=== PATIENT | female | born 1955 | race American Indian/Alaskan Native ===

== ENCOUNTER 2018-07-26 07:26 | Inpatient (IN) | payer OTHER ==
[2018-07-26] MEDS ORDERED: NORMODYNE IV ONE (07:45)
[2018-07-26 09:01] LABS: BUN/Creatinine Ratio 24; Basophils # (Auto) 0.1 K/mm3 (0.0-0.1); Basophils % (Auto) 0.7 % (0.0-1.8); Blood Urea Nitrogen 19 mg/dL (7-17); Calcium 10.2 mg/dL (8.4-10.2); Eosinophils % (Auto) 0.5 % (0.0-4.3); Hematocrit 39.8 % (30.3-42.9); Hemoglobin 12.7 gm/dl (10.1-14.3); Hemolysis Index 11; Lymphocytes # (Auto) 2.3 K/mm3 (1.2-5.4); Lymphocytes % (Auto) 32.5 % (13.4-35.0); Mean Corpuscular HGB Conc 32 % (30-34); Monocytes # (Auto) 0.4 K/mm3 (0.0-0.8); Monocytes % (Auto) 5.9 % (0.0-7.3); Platelet Count 254 K/mm3 (140-440); Red Blood Count 5.76 M/mm3 (3.65-5.03); Red Cell Distribution Width 16.8 % (13.2-15.2)
[2018-07-26 09:03] LABS: Alanine Aminotransferase 19 units/L (7-56); Albumin 4.4 g/dL (3.9-5)
[2018-07-26 09:07] LABS: Mean Corpuscular Hemoglobin 22 pg (28-32); Mean Corpuscular Volume 69 fl (79-97)
[2018-07-26 09:09] LABS: Bilirubin,Direct < 0.2 mg/dL (0-0.2)
[2018-07-26 09:16] LABS: INR 0.94 (0.87-1.13); Partial Thromboplastin Time 28.8 Sec. (24.2-36.6)
[2018-07-26] MEDS ORDERED: APRESOLINE IV ONE ×2 (09:27→11:48)
[2018-07-26] MEDS ORDERED: TYLENOL PO PRN (09:51)
[2018-07-26] MEDS ORDERED: SODIUM CHLORIDE FLUSH SYRINGE 10 ML IV PRN (09:51)
[2018-07-26] MEDS ORDERED: ZOFRAN IV PRN (09:51)
--- NOTE | 2018-07-26 09:55 | History and Physical Report ---
History of Present Illness Date of examination: 07/26/18 Chief complaint: Blood pressure is high History of present illness: 63-year-old -Serbian female with past medical history significant for hypertension, medication noncompliance was sent to the emergency department I have dentist. Patient went for dental checkup in the dentist check her blood pressure was high and he sent her here. Patient denies chest pain, headache, shortness of breath, palpitation. Patient said she was diagnosed with hypertension and didn't take medication over a year. At presentation blood pressure was 220/153 and is started on Cardene drip. REVIEW OF SYSTEMS: GENERAL: no weight change, no fatigue, no fever HEAD: no head ache EYES: no blurry vision, no acute visual loss EARS: no hearing loss, no discharge, no earache NOSE: no stuffiness, no sneezing, no discharge MOUTH, THROAT AND NECK: no bleeding gums, no sore throat, no swollen neck CARDIAC: no palpitations, no dyspnea on exertion, no orthopnea, no PND, no edema , no chest pain RESPIRATORY: no shortness of breath, no wheeze, no cough, no sputum, no hemoptysis, no asthma GI: no decreased appetite, no nausea, no vomiting, no dysphagia, no diarrhea, no constipation, no abdominal pain URINARY: no change in frequency, no urgency, no polyuria, no hematuria, no incontinence MUSCULOSKELETAL: no muscle weakness, no pain, no joint stiffness NEUROLOGIC: no loss of sensation/numbness, no tingling, no tremors, no weakness/ paralysis HEMATOLOGIC: no anemia, no easy bruising SKIN: no rashes ENDOCRINE: no heat/cold intolerance, no polyuria, no polydipsia, no thyroid problems, no diabetes PSYCHIATRIC: no anxiety, no depression, no suicidal ideations Past History Past Medical History: hypertension Past Surgical History: Social history: IV drug use. denies: smoking, alcohol abuse, prescription drug abuse Family history: no significant family history Medications and Allergies Allergies Allergy/AdvReac Type Severity Reaction Status Date / Time Penicillins Allergy Unknown Verified 07/26/18 09:56 Active Meds: Active Medications Acetaminophen (Tylenol) 650 mg PO Q4H PRN PRN Reason: Pain MILD(1-3)/Fever >100.5/JONES Heparin Sodium (Porcine) (Heparin) 5,000 unit SUB-Q Q8HR LISSA Nicardipine HCl 50 mg/ Sodium (Chloride) 250 mls @ 25 mls/hr IV TITR LISSA; Protocol Ondansetron HCl (Zofran) 4 mg IV Q8H PRN PRN Reason: Nausea And Vomiting Sodium Chloride (Sodium Chloride Flush Syringe 10 Ml) 10 ml IV BID LISSA Sodium Chloride (Sodium Chloride Flush Syringe 10 Ml) 10 ml IV PRN PRN PRN Reason: LINE FLUSH Exam - Physical Exam Narrative exam: Not in cardiopulmonary distress. The patient appeared well nourished and normally developed. Vital signs as documented. Head exam is unremarkable. No scleral icterus . Neck is without jugular venous distension, thyromegaly, or carotid bruits. Lungs are clear to auscultation. Cardiac exam reveals regular rate and Rhythm. First and second heart sounds normal. No murmurs, rubs or gallops. Abdominal exam reveals normal bowel sounds, no masses, no organomegaly and no aortic enlargement. Extremities are nonedematous and both femoral and pedal pulses are normal. 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 No focal weakness. - Constitutional Vitals: Temp Pulse Resp BP Pulse Ox 98 F 102 H 20 243/135 98 07/26/18 07:36 07/26/18 08:21 07/26/18 07:36 07/26/18 08:21 07/26/18 07:36 Results - Labs CBC & Chem 7: 07/26/18 08:19 07/26/18 08:19 Labs: Laboratory Last Values WBC 6.9 K/mm3 (4.5-11.0) 07/26/18 08:19 RBC 5.76 M/mm3 (3.65-5.03) H 07/26/18 08:19 Hgb 12.7 gm/dl (10.1-14.3) 07/26/18 08:19 Hct 39.8 % (30.3-42.9) 07/26/18 08:19 MCV 69 fl (79-97) L 07/26/18 08:19 MCH 22 pg (28-32) L 07/26/18 08:19 MCHC 32 % (30-34) 07/26/18 08:19 RDW 16.8 % (13.2-15.2) H 07/26/18 08:19 Plt Count 254 K/mm3 (140-440) 07/26/18 08:19 Lymph % (Auto) 32.5 % (13.4-35.0) 07/26/18 08:19 [place] % (Auto) 5.9 % (0.0-7.3) 07/26/18 08:19 Eos % (Auto) 0.5 % (0.0-4.3) 07/26/18 08:19 Baso % (Auto) 0.7 % (0.0-1.8) 07/26/18 08:19 Lymph # 2.3 K/mm3 (1.2-5.4) 07/26/18 08:19 [place] # 0.4 K/mm3 (0.0-0.8) 07/26/18 08:19 Eos # 0.0 K/mm3 (0.0-0.4) 07/26/18 08:19 Baso # 0.1 K/mm3 (0.0-0.1) 07/26/18 08:19 Seg Neutrophils % 60.4 % (40.0-70.0) 07/26/18 08:19 Seg Neutrophils # 4.2 K/mm3 (1.8-7.7) 07/26/18 08:19 PT 13.1 Sec. (12.2-14.9) 07/26/18 08:19 INR 0.94 (0.87-1.13) 07/26/18 08:19 APTT 28.8 Sec. (24.2-36.6) 07/26/18 08:19 Sodium 142 mmol/L (137-145) 07/26/18 08:19 Potassium 3.4 mmol/L (3.6-5.0) L 07/26/18 08:19 Chloride 100.8 mmol/L (98-107) 07/26/18 08:19 Carbon Dioxide 23 mmol/L (22-30) 07/26/18 08:19 Anion Gap 22 mmol/L 07/26/18 08:19 BUN 19 mg/dL (7-17) H 07/26/18 08:19 Creatinine 0.8 mg/dL (0.7-1.2) 07/26/18 08:19 Estimated GFR > 60 ml/min 07/26/18 08:19 BUN/Creatinine Ratio 24 % 07/26/18 08:19 Glucose 100 mg/dL (65-100) 07/26/18 08:19 Calcium 10.2 mg/dL (8.4-10.2) 07/26/18 08:19 Magnesium 2.00 mg/dL (1.7-2.3) 07/26/18 08:19 Total Bilirubin 0.60 mg/dL (0.1-1.2) 07/26/18 08:19 Direct Bilirubin < 0.2 mg/dL (0-0.2) 07/26/18 08:19 Indirect Bilirubin 0.4 mg/dL 07/26/18 08:19 AST 20 units/L (5-40) 07/26/18 08:19 ALT 19 units/L (7-56) 07/26/18 08:19 Alkaline Phosphatase 114 units/L (35-129) 07/26/18 08:19 Troponin T < 0.010 ng/mL (0.00-0.029) 07/26/18 08:19 NT-Pro-B Natriuret Pep 120.9 pg/mL (0-900) 07/26/18 08:19 Total Protein 7.8 g/dL (6.3-8.2) 07/26/18 08:19 Albumin 4.4 g/dL (3.9-5) 07/26/18 08:19 Albumin/Globulin Ratio 1.3 % 07/26/18 08:19 - Imaging and Cardiology EKG: image reviewed Assessment and Plan Assessment and plan: 63-year-old -Serbian female with past medical history significant for hypertension, medication non compliance presented to the emergency department from her dentist of his for hypertension. Hypertensive urgency - Blood pressure at presentation was 220/153 - Patient was treated with Cardene drip and blood pressure controlled - Plan is to admit to ICU, but currently the patient is off cardene drip and downgraded to telemetry - CXR normal DVT prophylaxis - on heparin Disposition - Admit to telemetry. Advance Directives: Yes VTE prophylaxis?: Chemical Plan of care discussed with patient/family: Yes
[2018-07-26] MEDS ORDERED: CARDENE 50 MG in NACL 0.9% 250ML 230 ML IV SCH (10:00)
--- NOTE | 2018-07-26 10:51 | XRay Report ---
FINAL REPORT EXAM: XR CHEST 1V AP HISTORY: Chest Pain TECHNIQUE: Frontal chest x-ray. PRIORS: None currently available. FINDINGS: Cardiac silhouette is within normal limits. Aortic calcifications. There is no effusion. There is no pneumothorax. There is no consolidation. There are no suspicious osseous lesions. IMPRESSION: No acute cardiopulmonary findings.
[2018-07-26] MEDS: SODIUM CHLORIDE FLUSH SYRINGE 10 ML IV SCH ×2 (11:39→21:22)
--- NOTE | 2018-07-26 11:39 | Emergency Department Report ---
ED General Adult HPI - General Chief complaint: High BP Stated complaint: HBP Time Seen by Provider: 07/26/18 08:17 Source: patient Mode of arrival: Ambulatory Limitations: No Limitations - History of Present Illness Initial comments: 63-year-old female went to the dentist this week and was told that her blood pressure was too elevated for procedure. She thereby decided to come to the emergency department the check a Millan. She states that she occasionally has headaches but she does not have a headache at this time. She is noncompliant with her blood pressure regimen for months to years. She denies any acute headache or severe headache recently. She denies any neurological change. She further denies any chest pain shortness of breath or change in urine output. -: year(s) Location: head Consistency: now resolved - Related Data Allergies Allergy/AdvReac Type Severity Reaction Status Date / Time Penicillins Allergy Unknown Verified 07/26/18 09:56 ED Review of Systems ROS: Stated complaint: HBP Other details as noted in HPI Constitutional: denies: chills, fever Eyes: denies: eye pain, eye discharge, vision change ENT: denies: ear pain, throat pain Respiratory: denies: cough, shortness of breath, wheezing Cardiovascular: denies: chest pain, palpitations Endocrine: no symptoms reported Gastrointestinal: denies: abdominal pain, nausea, diarrhea Genitourinary: denies: urgency, dysuria, discharge Musculoskeletal: denies: back pain, joint swelling, arthralgia Skin: denies: rash, lesions Neurological: as per HPI, headache. denies: weakness, paresthesias Psychiatric: denies: anxiety, depression Hematological/Lymphatic: denies: easy bleeding, easy bruising ED Past Medical Hx - Past Medical History Hx Hypertension: Yes - Surgical History Additional Surgical History: C SECTION - Social History Smoking Status: Never Smoker Substance Use Type: None ED Physical Exam - General Limitations: No Limitations General appearance: alert, in no apparent distress - Head Head exam: Present: atraumatic, normocephalic - Eye Eye exam: Present: normal appearance, PERRL, EOMI. Absent: scleral icterus - ENT ENT exam: Present: mucous membranes moist - Neck Neck exam: Present: normal inspection. Absent: tenderness, meningismus - Respiratory Respiratory exam: Present: normal lung sounds bilaterally. Absent: respiratory distress - Cardiovascular Cardiovascular Exam: Present: regular rate, normal rhythm. Absent: systolic murmur, diastolic murmur, rubs, gallop - GI/Abdominal GI/Abdominal exam: Present: soft, normal bowel sounds. Absent: distended, tenderness, guarding, rebound, rigid - Extremities Exam Extremities exam: Present: normal inspection - Back Exam Back exam: Present: normal inspection - Neurological Exam Neurological exam: Present: alert, oriented X3, CN II-XII intact. Absent: motor sensory deficit - Psychiatric Psychiatric exam: Present: normal affect, normal mood - Skin Skin exam: Present: warm, dry, intact, normal color. Absent: rash ED Course Vital Signs 07/26/18 07/26/18 07/26/18 07:36 08:21 08:24 Temperature 98 F Pulse Rate 116 H 102 H 100 H Respiratory 20 22 Rate Blood Pressure 221/152 243/135 O2 Sat by Pulse 98 Oximetry 07/26/18 07/26/18 07/26/18 08:30 09:08 09:15 Temperature Pulse Rate 85 73 77 Respiratory 20 12 17 Rate Blood Pressure 231/126 231/126 212/120 O2 Sat by Pulse Oximetry 07/26/18 09:30 Temperature Pulse Rate 77 Respiratory 15 Rate Blood Pressure 208/117 O2 Sat by Pulse Oximetry - Reevaluation(s) Reevaluation #1: I did not find an indication for acute imaging at this time. I will leave that up to the hospitalist. The patient was given labetalol and later hydralazine. She will be admitted for her accelerated hypertension and further evaluation per the hospital staff. 07/26/18 11:37 ED Medical Decision Making - Lab Data Result diagrams: 07/26/18 08:19 07/26/18 08:19 Laboratory Results - last 24 hr 07/26/18 07/26/18 07/26/18 08:19 08:19 08:19 WBC 6.9 RBC 5.76 H Hgb 12.7 Hct 39.8 MCV 69 L MCH 22 L MCHC 32 RDW 16.8 H Plt Count 254 Lymph % (Auto) 32.5 [place] % (Auto) 5.9 Eos % (Auto) 0.5 Baso % (Auto) 0.7 Lymph # 2.3 [place] # 0.4 Eos # 0.0 Baso # 0.1 Seg Neutrophils % 60.4 Seg Neutrophils # 4.2 PT 13.1 INR 0.94 APTT 28.8 Sodium 142 Potassium 3.4 L Chloride 100.8 Carbon Dioxide 23 Anion Gap 22 BUN 19 H Creatinine 0.8 Estimated GFR > 60 BUN/Creatinine Ratio 24 Glucose 100 Calcium 10.2 Magnesium Total Bilirubin Direct Bilirubin Indirect Bilirubin AST ALT Alkaline Phosphatase Troponin T < 0.010 NT-Pro-B Natriuret Pep Total Protein Albumin Albumin/Globulin Ratio 07/26/18 08:19 WBC RBC Hgb Hct MCV MCH MCHC RDW Plt Count Lymph % (Auto) [place] % (Auto) Eos % (Auto) Baso % (Auto) Lymph # [place] # Eos # Baso # Seg Neutrophils % Seg Neutrophils # PT INR APTT Sodium Potassium Chloride Carbon Dioxide Anion Gap BUN Creatinine Estimated GFR BUN/Creatinine Ratio Glucose Calcium Magnesium 2.00 Total Bilirubin 0.60 Direct Bilirubin < 0.2 Indirect Bilirubin 0.4 AST 20 ALT 19 Alkaline Phosphatase 114 Troponin T NT-Pro-B Natriuret Pep 120.9 Total Protein 7.8 Albumin 4.4 Albumin/Globulin Ratio 1.3 - EKG Data -: EKG Interpreted by [place] EKG shows normal: sinus rhythm, axis, intervals, QRS complexes, ST-T waves - EKG Data Interpretation: LVH, other (EKG is fairly classic for LVH with inferolateral associated changes consistent with LVH) - Radiology Data Radiology results: report reviewed Critical care attestation.: If time is entered above; I have spent that time in minutes in the direct care of this critically ill patient, excluding procedure time. ED Disposition Clinical Impression: Accelerated hypertension Disposition: OP ADMIT IP TO THIS HOSP Is pt being admited?: Yes Does the pt Need Aspirin: No Time of Disposition: 11:39
[2018-07-26] MEDS ORDERED: CATAPRES PO ONE (11:53)
--- NOTE | 2018-07-26 13:52 | Consultation ---
History of Present Illness Consult date: 07/26/18 Requesting physician: MAHAD JEFFREY Reason for consult: other (Hypertensive Urgency) History of present illness: PULMONARY/CCM CONSULT NOTE (Full dictation # [id number]) Please see dictated notes for full details Medications and Allergies Allergies Allergy/AdvReac Type Severity Reaction Status Date / Time Penicillins Allergy Unknown Verified 07/26/18 09:56 Active Meds: Active Medications Acetaminophen (Tylenol) 650 mg PO Q4H PRN PRN Reason: Pain MILD(1-3)/Fever >100.5/JONES Heparin Sodium (Porcine) (Heparin) 5,000 unit SUB-Q Q8HR LISSA Ondansetron HCl (Zofran) 4 mg IV Q8H PRN PRN Reason: Nausea And Vomiting Sodium Chloride (Sodium Chloride Flush Syringe 10 Ml) 10 ml IV BID LISSA Last Admin: 07/26/18 11:39 Dose: 10 ml Sodium Chloride (Sodium Chloride Flush Syringe 10 Ml) 10 ml IV PRN PRN PRN Reason: LINE FLUSH Physical Examination Vital signs: Vital Signs Temp Pulse Resp BP Pulse Ox 98 F 116 H 20 221/152 98 07/26/18 07:36 07/26/18 07:36 07/26/18 07:36 07/26/18 07:36 07/26/18 07:36 Results - Laboratory Findings CBC and BMP: 07/26/18 08:19 07/26/18 08:19 PT/INR, D-dimer PT 13.1 Sec. (12.2-14.9) 07/26/18 08:19 INR 0.94 (0.87-1.13) 07/26/18 08:19 Abnormal lab findings: Abnormal Labs 07/26/18 07/26/18 08:19 08:19 RBC 5.76 H MCV 69 L MCH 22 L RDW 16.8 H Potassium 3.4 L BUN 19 H
[2018-07-26] MEDS ORDERED: HEPARIN SUB-Q SCH (14:00)
[2018-07-26] MEDS: APRESOLINE IV SCH ×2 (16:09→20:39)
[2018-07-26] MEDS ORDERED: K-DUR PO ONE (17:19)
[2018-07-26] MEDS: NORVASC PO SCH (17:52)
[2018-07-26] MEDS: HCTZ PO SCH (17:52)
--- NOTE | 2018-07-26 21:11 | Consultation ---
PULMONARY CRITICAL CARE CONSULTATION CONSULTING PHYSICIAN: Gerhard Borjas MD REASON FOR CONSULTATION: Hypertensive urgency. CHIEF COMPLAINT AND HISTORY OF PRESENT ILLNESS: The patient is a 63-year-old -[place] female with past medical history significant for diagnosis of high blood pressure for which she states she has been trying to control it with diet, went to see her dentist; however, was told her blood pressure was too high, so she came into the Emergency Room to get checked up. In the ER, she was found to indeed be significantly hypertensive, systolics up to about 250 mmHg. She denied any neurologic symptoms, no headache, no dizziness. She denied any nausea or vomiting. Denied chest pains. Denies palpitations. She was started on a Cardene drip and we were asked to assist with management. When I stopped by to see her, she was doing a little bit better, she had just received another dose of hydralazine and a dose of clonidine with a pretty decent response. She denied still any dizziness, any chest pains, any nausea, any vomiting. She describes herself to me as a never smoker. This really is as much of the history of presentation as I have. PAST MEDICAL HISTORY: Hypertension. PAST SURGICAL HISTORY: She has had a in the past. MEDICATIONS: She was on at the time I stopped by to see her were reviewed and include the following: Heparin 5000 units subcutaneous q.8 hours, Zofran 4 mg IV q. 8 hours p.r.n. nausea and vomiting, Tylenol 650 mg p.o. q.4 hours, and she had received a couple of doses of hydralazine as well as a dose of labetalol 10 mg IV once. ALLERGIES: PENICILLIN, nature of this allergy is unknown. DIET: Thin, almost cachectic looking lady. She denies significant weight loss or gain preceding few weeks to months. FAMILY AND SOCIAL HISTORY: Lives in the community. Denies alcohol, tobacco, or illicit drug use or abuse. Family history, otherwise significant for high blood pressure. REVIEW OF SYSTEMS: No loss of consciousness. No new onset seizures. No new onset focal weakness. No gross hematochezia or melena. No gross hematuria, no hematemesis. Denies palpitations. Denies heat or cold intolerance. Complete 13-system review of systems obtained. Pertinent positives and/or negatives as in body of history above, otherwise noncontributory. PHYSICAL EXAMINATION: VITAL SIGNS: At presentation, she was afebrile, temperature 98 degrees Fahrenheit, pulse 116, respiratory rate 20, blood pressure 221/152, was as high as 243/135, oxygen sats 98%, inspired oxygen concentration was not recorded, at the time, I did see her, she was around 98% on room air. GENERAL: Elderly looking -[place]ian female, normocephalic, atraumatic, talking to me in full sentences without significant respiratory distress. HEAD, EYES, EARS, NOSE, AND THROAT: She is anicteric. No conjunctival erythema. Oropharynx is a Mallampati #2 oropharynx. No gross jugular venous distention, no thyromegaly. Grossly, no palpable lymph nodes in the supraclavicular or submandibular lymph node chains. LUNGS: Auscultation of both lung bhakta unremarkable. Lungs are clear bilaterally. HEART: Heart sounds 1 and 2 are heard, regular rate and rhythm at the time of my evaluation with a heavy precordial heave, but no murmurs or rubs. ABDOMEN: Soft, flat. Bowel sounds are positive, nontender, no palpable hepatosplenomegaly. EXTREMITIES: Without overt digital clubbing or cyanosis. No pedal edema. NEUROLOGIC: Pupils are equal, round, about 3-4 mm, reactive to light. Extraocular muscle movements are intact. She moves all 4 extremities spontaneously. Mood and affect are normal. The skin is of poor turgor; however, without rash or cellulitis. LABORATORY DATA: From my review, white cell count 6900, hemoglobin 12.7, hematocrit 39.8, and platelet count of 254. No band forms. INR of 0.94. Serum sodium 142, potassium 3.4, chloride 101, bicarbonate 23, BUN 19, creatinine 0.8, and glucose of 100. Liver function test within normal limits. Cardiac enzymes within normal limits. Chest x-ray has been reviewed, does evidence of hyperinflation with flattening both of the right hemidiaphragm and depression somewhat of the liver. Taking the hyperinflation into consideration, I do see she has some cardiomegaly. No gross pneumothorax, no gross bony fracture. ASSESSMENT: 1. Hypertensive urgency. 2. Uncontrolled hypertension. 3. Possible chronic obstructive lung disease. 4. Cardiomegaly. 5. Hypokalemia. PLAN: She has responded very well to clonidine 0.3 mg as well as 20 mg of IV hydralazine. I will schedule hydralazine q.4h. 10 mg IV q.4 hours, but with hold parameters over the next 24 hours while we try to treat her oral medication, I will put her on clonidine 0.1 mg p.o. b.i.d. withhold parameters. I will defer to the primary team in terms of possible Cardiology evaluation. She may benefit from a 2D echocardiogram. She is appropriately on DVT prophylaxis. I will put her on GI prophylaxis. Flu and pneumonia vaccination will be addressed per protocol. Cardene drip has been stopped. She will be downgraded to the medical floor. Thank you very much for the consult. She is doing better. We will downgrade her to the medical floor and see her as needed during this hospitalization. JOB# [id number] KIMBERLY/KELLEY
[2018-07-26] MEDS: CATAPRES PO SCH (21:22)
[2018-07-26] MEDS ORDERED: LOVENOX SUB-Q SCH (22:00)
[2018-07-27] MEDS: APRESOLINE IV SCH ×4 (00:34→13:48)
[2018-07-27 08:02] LABS: Basophils % (Auto) 0.5 % (0.0-1.8); Eosinophils % (Auto) 0.2 % (0.0-4.3); Hematocrit 33.6 % (30.3-42.9); Lymphocytes # (Auto) 1.5 K/mm3 (1.2-5.4); Lymphocytes % (Auto) 22.2 % (13.4-35.0); Mean Corpuscular HGB Conc 33 % (30-34); Monocytes # (Auto) 0.4 K/mm3 (0.0-0.8); Monocytes % (Auto) 6.6 % (0.0-7.3); Platelet Count 245 K/mm3 (140-440); Red Blood Count 4.95 M/mm3 (3.65-5.03); Red Cell Distribution Width 16.6 % (13.2-15.2)
[2018-07-27 08:28] LABS: Mean Corpuscular Hemoglobin 22 pg (28-32); Mean Corpuscular Volume 68 fl (79-97)
[2018-07-27] MEDS: CATAPRES PO SCH (11:29)
[2018-07-27] MEDS: HCTZ PO SCH (11:30)
[2018-07-27] MEDS: NORVASC PO SCH (11:30)
[2018-07-27] MEDS: SODIUM CHLORIDE FLUSH SYRINGE 10 ML IV SCH (11:30)
[2018-07-27] MEDS ORDERED: K-DUR PO ONE ×2 (11:54→15:00)
--- NOTE | 2018-07-27 11:57 | Discharge Summary ---
Providers - Providers Date of Admission: 07/26/18 09:51 Attending physician: MAHAD JEFFREY MD 07/26/18 09:51 Consult to Physician [CONS] Routine Comment: MELVIN Johnson/Sebas NOTIFIED [id number] Consulting Provider: RAYO STEPHENS Physician Instructions: Reason For Exam: hypertensive urgency for ICU admission 07/27/18 04:55 Consult to Case Management [CONS] Routine Services Needed at Discharge: Other Notified:: No Additional Physician Instructions: Medication assistance Primary care physician: ARBORER Hospitalization Reason for admission: hypertensive urgency Condition: Stable Disposition: DC-01 TO HOME OR SELFCARE Time spent for discharge: 34 minutes - Discharge Diagnoses (1) Hypertensive urgency, malignant Status: Acute (2) Nonadherence to medication Status: Chronic Core Measure Documentation - Palliative Care Palliative Care/ Comfort Measures: Not Applicable - Core Measures Any of the following diagnoses?: none Exam - Physical Exam Narrative exam: Not in cardiopulmonary distress. The patient appeared well nourished and normally developed. Vital signs as documented. Head exam is unremarkable. No scleral icterus . Neck is without jugular venous distension, thyromegaly, or carotid bruits. Lungs are clear to auscultation. Cardiac exam reveals regular rate and Rhythm. First and second heart sounds normal. No murmurs, rubs or gallops. Abdominal exam reveals normal bowel sounds, no masses, no organomegaly and no aortic enlargement. Extremities are nonedematous and both femoral and pedal pulses are normal. 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 No focal weakness. - Constitutional Vitals: Temp Pulse Resp BP Pulse Ox 98.6 F 88 20 139/84 97 07/27/18 04:57 07/27/18 08:52 07/27/18 10:57 07/27/18 11:30 07/27/18 07:55 Plan Activity: no restrictions Diet: low salt Additional Instructions: follow up at [facility] in 1-2 weeks Follow up with: PRIMARY MD JERAMIE [Primary Care Provider] - 7 Days Prescriptions: amLODIPine [Norvasc] 10 mg PO QDAY #30 tablet cloNIDine [Catapres] 0.1 mg PO BID #60 tablet hydroCHLOROthiazide [HCTZ] 25 mg PO QDAY #30 tablet
[2018-07-27 13:19] VITALS: BP 151/90
== END 2018-07-27 15:40 | disposition home or self-care (01) | DRG 305 ==
LOC: ED 07:26 → CC1 09:51 → 4A 16:36
PROVIDERS: ADMIT Internal Medicine; ATTEND Internal Medicine
DX: I16.0 Hypertensive urgency (principal); I11.9 Hypertensive heart disease without heart failure; E87.6 Hypokalemia; Z91.14 Patient's other noncompliance with medication regimen; Z88.0 Allergy status to penicillin
CPT/HCPCS: 36415; 71045; 80048; 80074; 83735; 83880; 84484; 85025; 85610; 85730; 93005; 93010; J0360; J1644; J1650; J7050

== ENCOUNTER 2018-09-02 00:01 | Emergency (ER) | payer SELFPAY ==
[2018-09-02] MEDS ORDERED: ASPIRIN PO ONE (00:21)
[2018-09-02 01:04] LABS: Basophils % (Auto) 0.4 % (0.0-1.8); Eosinophils % (Auto) 0.1 % (0.0-4.3); Hematocrit 36.8 % (30.3-42.9); Hemoglobin 12.2 gm/dl (10.1-14.3); Lymphocytes # (Auto) 1.5 K/mm3 (1.2-5.4); Lymphocytes % (Auto) 18.4 % (13.4-35.0); Mean Corpuscular HGB Conc 33 % (30-34); Monocytes # (Auto) 0.4 K/mm3 (0.0-0.8); Monocytes % (Auto) 5.5 % (0.0-7.3); Platelet Count 255 K/mm3 (140-440); Red Blood Count 5.36 M/mm3 (3.65-5.03); Red Cell Distribution Width 16.9 % (13.2-15.2)
[2018-09-02 01:06] LABS: Mean Corpuscular Hemoglobin 23 pg (28-32); Mean Corpuscular Volume 69 fl (79-97)
[2018-09-02 01:27] LABS: BUN/Creatinine Ratio 30; Blood Urea Nitrogen 27 mg/dL (7-17); Calcium 10.6 mg/dL (8.4-10.2); Hemolysis Index 2
[2018-09-02 01:41] LABS: Bilirubin,Urine NEG (Negative); Blood,Urine MOD (Negative); Color,Urine Yellow (Yellow); Mucus,Urine FEW /HPF; Urobilinogen,Urine < 2.0 mg/dL (<2.0)
[2018-09-02 01:48] LABS: Amphetamine Screen,Urine PRESUMPTIVE NEGATIVE; Benzodiazepines Screen,Urine PRESUMPTIVE NEGATIVE; Cannabinoid Screen,Urine PRESUMPTIVE NEGATIVE; Cocaine Screen,Urine PRESUMPTIVE NEGATIVE; Methadone Screen,Urine PRESUMPTIVE NEGATIVE; Opiate Screen,Urine PRESUMPTIVE NEGATIVE
[2018-09-02] MEDS ORDERED: CATAPRES PO ONE ×2 (03:45→07:22)
--- NOTE | 2018-09-02 06:57 | Emergency Department Report ---
ED General Adult HPI - General Chief complaint: High BP Stated complaint: ELEVATED BP Time Seen by Provider: 09/02/18 06:25 Source: patient, old records reviewed Mode of arrival: Ambulatory Limitations: No Limitations - History of Present Illness Initial comments: 63-year-old female with a past medical history hypertension presents to the hospital with elevated blood pressure. Patient complains of some mild numbness and discomfort to bilateral soles of feet. Apparently she walks 30 miles last night. BP was elevated home. She's been noncompliant with her blood pressure medication. Daughter complains of she has been sleeping and walking a lot and having erratic behavior including inverting out things and screaming. Basic visit ED with elevated blood pressures as headache, chest pain, shortness breath , leg edema. She is alert and aware she is at the hospital ([facility]), the date and self. Previous medical records reviewed. Patient was admitted here and UNCONTROLLED hypertension treated with Cardizem drip and discharged on multiple blood pressure medications Severity scale (0 -10): 0 - Related Data Previous Rx's Medication Instructions Recorded Last Taken Type amLODIPine [Norvasc] 10 mg PO QDAY #30 tablet 09/02/18 Unknown Rx cloNIDine [Catapres] 0.1 mg PO BID #60 tablet 09/02/18 Unknown Rx hydroCHLOROthiazide [HCTZ] 25 mg PO QDAY #30 tablet 09/02/18 Unknown Rx Allergies Allergy/AdvReac Type Severity Reaction Status Date / Time Penicillins Allergy Unknown Verified 07/26/18 09:56 ED Review of Systems ROS: Stated complaint: ELEVATED BP Other details as noted in HPI Comment: All other systems reviewed and negative ED Past Medical Hx - Past Medical History Previous Medical History?: Yes Hx Hypertension: Yes - Surgical History Past Surgical History?: Yes Additional Surgical History: C SECTION - Social History Smoking Status: Never Smoker Substance Use Type: None - Medications Home Medications: Home Medications Medication Instructions Recorded Confirmed Last Taken Type amLODIPine [Norvasc] 10 mg PO QDAY #30 tablet 09/02/18 Unknown Rx cloNIDine [Catapres] 0.1 mg PO BID #60 tablet 09/02/18 Unknown Rx hydroCHLOROthiazide [HCTZ] 25 mg PO QDAY #30 tablet 09/02/18 Unknown Rx ED Physical Exam - General Limitations: No Limitations - Other Other exam information: General: No limitations, patient is alert in no acute distress Head exam: Atraumatic, normocephalic Eyes exam: Normal appearance, pupils equal reactive to light, extraocular movements intact ENT: Moist mucous membrane Neck exam: Normal inspection, full range of motion, no meningismus nontender Respiratory exam: Clear to auscultation bilateral, no wheezes, rales, crackles Cardiovascular: Normal rate and rhythm, normal heart sounds Abdomen: Soft, nondistended, and nontender, with normal bowel sounds, no rebound, or guarding Extremity: Full range of motion normal inspection no deformity, no calf tenderness or edema Back: Normal Inspection, full range of motion, no tenderness Neurologic: Alert, oriented x3, cranial nerves intact, no motor or sensory deficit, gait steady Psychiatric: normal affect, normal mood Skin: Warm, dry, intact ED Course Vital Signs 09/02/18 09/02/18 09/02/18 00:13 03:11 03:15 Temperature 99.2 F 98.4 F Pulse Rate 121 H 100 H Respiratory 18 16 Rate Blood Pressure 217/115 206/112 214/107 Blood Pressure 206/110 [Left] O2 Sat by Pulse 100 99 Oximetry 09/02/18 09/02/18 09/02/18 03:30 03:45 03:50 Temperature Pulse Rate 102 H Respiratory Rate Blood Pressure 204/104 171/96 171/96 Blood Pressure [Left] O2 Sat by Pulse 100 98 Oximetry 09/02/18 09/02/18 09/02/18 04:06 04:19 04:30 Temperature Pulse Rate Respiratory 16 Rate Blood Pressure 209/122 160/98 Blood Pressure [Left] O2 Sat by Pulse 98 98 98 Oximetry 09/02/18 09/02/18 09/02/18 05:00 06:22 06:56 Temperature 98.4 F Pulse Rate 82 104 H Respiratory 16 16 Rate Blood Pressure 165/97 Blood Pressure 166/94 212/124 [Left] O2 Sat by Pulse 98 98 Oximetry 09/02/18 09/02/18 09/02/18 07:24 07:54 09:06 Temperature 97.8 F Pulse Rate 85 77 75 Respiratory 20 Rate Blood Pressure 169/100 Blood Pressure 186/104 145/84 [Left] O2 Sat by Pulse 100 Oximetry ED Medical Decision Making - Lab Data Result diagrams: 09/02/18 00:33 09/02/18 00:33 Lab Results 09/02/18 09/02/18 09/02/18 Range/Units 00:21 00:33 00:33 WBC 8.0 (4.5-11.0) K/mm3 RBC 5.36 H (3.65-5.03) M/mm3 Hgb 12.2 (10.1-14.3) gm/dl Hct 36.8 (30.3-42.9) % MCV 69 L (79-97) fl MCH 23 L (28-32) pg MCHC 33 (30-34) % RDW 16.9 H (13.2-15.2) % Plt Count 255 (140-440) K/mm3 Lymph % (Auto) 18.4 (13.4-35.0) % [place] % (Auto) 5.5 (0.0-7.3) % Eos % (Auto) 0.1 (0.0-4.3) % Baso % (Auto) 0.4 (0.0-1.8) % Lymph # 1.5 (1.2-5.4) K/mm3 [place] # 0.4 (0.0-0.8) K/mm3 Eos # 0.0 (0.0-0.4) K/mm3 Baso # 0.0 (0.0-0.1) K/mm3 Seg Neutrophils % 75.6 H (40.0-70.0) % Seg Neutrophils # 6.0 (1.8-7.7) K/mm3 Sodium 142 (137-145) mmol/L Potassium 3.4 L (3.6-5.0) mmol/L Chloride 102.8 (98-107) mmol/L Carbon Dioxide 24 (22-30) mmol/L Anion Gap 19 mmol/L BUN 27 H (7-17) mg/dL Creatinine 0.9 (0.7-1.2) mg/dL Estimated GFR > 60 ml/min BUN/Creatinine Ratio 30 % Glucose 160 H (65-100) mg/dL POC Glucose 164 H (70-105) Calcium 10.6 H (8.4-10.2) mg/dL Troponin T < 0.010 (0.00-0.029) ng/mL Urine Color (Yellow) Urine Turbidity (Clear) Urine pH (5.0-7.0) Ur Specific [place] (1.003-1.030) Urine Protein (Negative) mg/dL Urine Glucose (UA) (Negative) mg/dL Urine Ketones (Negative) mg/dL Urine Blood (Negative) Urine Nitrite (Negative) Urine Bilirubin (Negative) Urine Urobilinogen (<2.0) mg/dL Ur Leukocyte Esterase (Negative) Urine WBC (Auto) (0.0-6.0) /HPF Urine RBC (Auto) (0.0-6.0) /HPF Urine Mucus /HPF Salicylates (2.8-20.0) mg/dL Urine Opiates Screen Urine Methadone Screen Acetaminophen (10.0-30.0) ug/mL Ur Barbiturates Screen Ur Phencyclidine Scrn Ur Amphetamines Screen U Benzodiazepines Scrn Urine Cocaine Screen U Marijuana (THC) Screen Drugs of Abuse Note Plasma/Serum Alcohol (0-0.07) % 09/02/18 09/02/18 09/02/18 Range/Units 00:33 00:33 00:33 WBC (4.5-11.0) K/mm3 RBC (3.65-5.03) M/mm3 Hgb (10.1-14.3) gm/dl Hct (30.3-42.9) % MCV (79-97) fl MCH (28-32) pg MCHC (30-34) % RDW (13.2-15.2) % Plt Count (140-440) K/mm3 Lymph % (Auto) (13.4-35.0) % [place] % (Auto) (0.0-7.3) % Eos % (Auto) (0.0-4.3) % Baso % (Auto) (0.0-1.8) % Lymph # (1.2-5.4) K/mm3 [place] # (0.0-0.8) K/mm3 Eos # (0.0-0.4) K/mm3 Baso # (0.0-0.1) K/mm3 Seg Neutrophils % (40.0-70.0) % Seg Neutrophils # (1.8-7.7) K/mm3 Sodium (137-145) mmol/L Potassium (3.6-5.0) mmol/L Chloride (98-107) mmol/L Carbon Dioxide (22-30) mmol/L Anion Gap mmol/L BUN (7-17) mg/dL Creatinine (0.7-1.2) mg/dL Estimated GFR ml/min BUN/Creatinine Ratio % Glucose (65-100) mg/dL POC Glucose (70-105) Calcium (8.4-10.2) mg/dL Troponin T (0.00-0.029) ng/mL Urine Color (Yellow) Urine Turbidity (Clear) Urine pH (5.0-7.0) Ur Specific [place] (1.003-1.030) Urine Protein (Negative) mg/dL Urine Glucose (UA) (Negative) mg/dL Urine Ketones (Negative) mg/dL Urine Blood (Negative) Urine Nitrite (Negative) Urine Bilirubin (Negative) Urine Urobilinogen (<2.0) mg/dL Ur Leukocyte Esterase (Negative) Urine WBC (Auto) (0.0-6.0) /HPF Urine RBC (Auto) (0.0-6.0) /HPF Urine Mucus /HPF Salicylates < 0.3 L (2.8-20.0) mg/dL Urine Opiates Screen Urine Methadone Screen Acetaminophen < 5.0 L (10.0-30.0) ug/mL Ur Barbiturates Screen Ur Phencyclidine Scrn Ur Amphetamines Screen U Benzodiazepines Scrn Urine Cocaine Screen U Marijuana (THC) Screen Drugs of Abuse Note Plasma/Serum Alcohol < 0.01 (0-0.07) % 09/02/18 09/02/18 Range/Units 01:07 01:07 WBC (4.5-11.0) K/mm3 RBC (3.65-5.03) M/mm3 Hgb (10.1-14.3) gm/dl Hct (30.3-42.9) % MCV (79-97) fl MCH (28-32) pg MCHC (30-34) % RDW (13.2-15.2) % Plt Count (140-440) K/mm3 Lymph % (Auto) (13.4-35.0) % [place] % (Auto) (0.0-7.3) % Eos % (Auto) (0.0-4.3) % Baso % (Auto) (0.0-1.8) % Lymph # (1.2-5.4) K/mm3 [place] # (0.0-0.8) K/mm3 Eos # (0.0-0.4) K/mm3 Baso # (0.0-0.1) K/mm3 Seg Neutrophils % (40.0-70.0) % Seg Neutrophils # (1.8-7.7) K/mm3 Sodium (137-145) mmol/L Potassium (3.6-5.0) mmol/L Chloride (98-107) mmol/L Carbon Dioxide (22-30) mmol/L Anion Gap mmol/L BUN (7-17) mg/dL Creatinine (0.7-1.2) mg/dL Estimated GFR ml/min BUN/Creatinine Ratio % Glucose (65-100) mg/dL POC Glucose (70-105) Calcium (8.4-10.2) mg/dL Troponin T (0.00-0.029) ng/mL Urine Color Yellow (Yellow) Urine Turbidity Clear (Clear) Urine pH 5.0 (5.0-7.0) Ur Specific [place] 1.013 (1.003-1.030) Urine Protein 100 mg/dl (Negative) mg/dL Urine Glucose (UA) 50 (Negative) mg/dL Urine Ketones Tr (Negative) mg/dL Urine Blood Mod (Negative) Urine Nitrite Neg (Negative) Urine Bilirubin Neg (Negative) Urine Urobilinogen < 2.0 (<2.0) mg/dL Ur Leukocyte Esterase Tr (Negative) Urine WBC (Auto) 1.0 (0.0-6.0) /HPF Urine RBC (Auto) 1.0 (0.0-6.0) /HPF Urine Mucus Few /HPF Salicylates (2.8-20.0) mg/dL Urine Opiates Screen Presumptive negative Urine Methadone Screen Presumptive negative Acetaminophen (10.0-30.0) ug/mL Ur Barbiturates Screen Presumptive negative Ur Phencyclidine Scrn Presumptive negative Ur Amphetamines Screen Presumptive negative U Benzodiazepines Scrn Presumptive negative Urine Cocaine Screen Presumptive negative U Marijuana (THC) Screen Presumptive negative Drugs of Abuse Note Disclamer Plasma/Serum Alcohol (0-0.07) % - EKG Data -: EKG Interpreted by Sd EKG shows normal: sinus rhythm, axis (qrs 63), QRS complexes (qrsd 84), ST-T waves (no stemi/t inv) Rate: normal (68) - EKG Data When compared to previous EKG there are: no significant change - Radiology Data Radiology results: report reviewed FINAL REPORT EXAM: CT HEAD/BRAIN WO CON HISTORY: pychosis, erradic behavior TECHNIQUE: CT imaging is acquired through the brain without contrast. Transaxial reformations are provided. PRIORS: None. FINDINGS: Ventricles and CSF spaces are within normal limits. Scattered deep and subcortical white matter hypodense foci are confluent in some areas (particularly in the superior posterior frontal lobes on axial series 2, images 38-44) and are compatible with microvascular angiopathy. No acute intracranial hemorrhage or mass effect. No skull fracture. No significant abnormality within the imaged paranasal sinuses or mastoid air cells. IMPRESSION: No acute intracranial hemorrhage or mass effect. Superior posterior frontal white matter hypodensity is most likely sequela of microvascular angiopathy. Infection and other vascular abnormalities could appear similar. Consider follow-up MRI. - Medical Decision Making Differential: Dementia patient presents to the hospital with asymptomatic hypertension likely secondary to medication noncompliance. Also suspect the patient has dementia given recent psychiatric history and current presentation. CT head without acute findings no laboratory by that's indicate acute encephalopathy. Mental health evaluation obtained and agrees that patient does not meet 1013 criteria. Outpatient follow-up for also be provided. Patient was admitted here July for uncontrolled hypertension and medication noncompliance. Improvement in BP at the clonidine in the ED. Recently discharge medications will be represcribed. Patient received by mouth potassium for mild hypokalemia. Referred to mental health body painter note. He discussed case with patient's daughter as part assessment. - Differential Diagnosis hypertensive emergency, medication noncompliance, encephalopathy, psychosis Critical Care Time: No Critical care attestation.: If time is entered above; I have spent that time in minutes in the direct care of this critically ill patient, excluding procedure time. ED Disposition Clinical Impression: Uncontrolled hypertension, Nonadherence to medication, Mental health problem, Hypokalemia Disposition: DC-01 TO HOME OR SELFCARE Is pt being admited?: No Does the pt Need Aspirin: No Condition: Stable Instructions: Dementia (ED), Hypertension (ED), Hypokalemia (ED) Additional Instructions: I have represcribed your recent discharge blood pressure medication. Take them as prescribed. Follow-up with the primary care doctor as well as a psychiatrist for further treatment of your medical conditions and psychiatric concerns. Please return if symptoms worsen as indicated by your discharge instructions. Prescriptions: amLODIPine [Norvasc] 10 mg PO QDAY #30 tablet cloNIDine [Catapres] 0.1 mg PO BID #60 tablet hydroCHLOROthiazide [HCTZ] 25 mg PO QDAY #30 tablet Referrals: PRIMARY CARE, [Primary Care Provider] - 3-5 Days [facility] [Provider Group] - 3-5 Days (Primary care clinic) BELGICA MCKEON MD [Staff Physician] - 3-5 Days (Primary care doctor) [facility] [Outside] - 3-5 Days (Mental health clinic) Time of Disposition: 09:31
--- NOTE | 2018-09-02 07:27 | Cat Scan Report ---
FINAL REPORT EXAM: CT HEAD/BRAIN WO CON HISTORY: pychosis, erradic behavior TECHNIQUE: CT imaging is acquired through the brain without contrast. Transaxial reformations are provided. PRIORS: None. FINDINGS: Ventricles and CSF spaces are within normal limits. Scattered deep and subcortical white matter hypodense foci are confluent in some areas (particularly in the superior posterior frontal lobes on axial series 2, images 38-44) and are compatible with microvascular angiopathy. No acute intracranial hemorrhage or mass effect. No skull fracture. No significant abnormality within the imaged paranasal sinuses or mastoid air cells. IMPRESSION: No acute intracranial hemorrhage or mass effect. Superior posterior frontal white matter hypodensity is most likely sequela of microvascular angiopathy. Infection and other vascular abnormalities could appear similar. Consider follow-up MRI.
[2018-09-02 09:08] VITALS: BP 145/84
[2018-09-02] MEDS ORDERED: K-DUR PO ONE (09:30)
== END 2018-09-02 10:45 | disposition home or self-care (01) ==
LOC: ED 00:01
DX: I10 Essential (primary) hypertension (principal); Z91.19 Patient's noncompliance with other medical treatment and regimen; E87.6 Hypokalemia; F48.8 Other specified nonpsychotic mental disorders; Z88.0 Allergy status to penicillin
CPT/HCPCS: 36415; 70450; 80048; 80307; 81001; 82962; 84484; 85025; 93005; 93010; 99285; G0480; 80320